=== PATIENT | male | born 1975 | race Caucasian/White ===

== ENCOUNTER 2016-12-27 13:34 | Outpatient (CLI) | payer MEDICARE, OTHER ==
[~2016-12-27] VITALS: Ht 195.6 cm; Wt 115.2 kg
[2016-12-27] MEDS ORDERED: ATORVASTATIN CA10 MG ORAL (13:52)
[2016-12-27] MEDS ORDERED: KLONOPIN1 MG ORAL (13:52)
--- NOTE | 2016-12-27 14:14 | GI Initial Consult Note ---
History of Present Illness General Date patient seen: Dec 27, 2016 Time patient seen: 14:07 Referring physician: FERN Reason for Consultation: COLONOSCOPY Present Illness HPI 41 year old male patient referred by Dr. Jacobs for colonoscopy screening given recent diverticulitis. The patient has no previous history of any colonoscopy. He presents today with no GI symptoms. Denies any weight loss or dietary changes. Home Meds Reported Medications Clonazepam* (KLONOPIN*) 1 Mg Tablet, ORAL Q6H, #15 TAB 0 Refills 12/27/16 Atorvastatin Calcium* (LIPITOR*) 10 Mg Tablet, ORAL BEDTIME, TAB 12/27/16 Med list reviewed/reconciled: Yes Allergies: Coded Allergies: No Known Allergies (Verified Allergy, Unknown, 01/04/11) Patient History History Provided By: Patient PMH Narrative diverticulitis depression HTN sleep apnea cholesterol PSHx 2014 colon resection Rt foot MMA Pertinent Family History: none Social History Narrative ETOH use 5x weekly tobacco use 20/d x 5, now occasional use drug use - Medical MJ Review of Systems All Other Systems: negative except mentioned in HPI Physical Exam T 97.9 P 48 96 RA 6'5 WT 245 Sp02 EP Interpretation: normal General Appearance: well appearing, no apparent distress, alert Head: normocephalic EENT: PERRL/EOMI, normal ENT inspection, TMs normal Neck: normal inspection, full range of motion, supple Respiratory: lungs clear, normal breath sounds, no respiratory distress Cardiovascular: normal rate Gastrointestinal: normal inspection, non tender, soft, normal bowel sounds Rectal: deferred Musculoskeletal: back normal Neurologic: normal inspection, alert, oriented x3, responsive Psychiatric: normal inspection, judgement/insight normal, memory normal Skin: normal inspection, normal color, no rash, warm/dry, palpation normal Lymphatic: normal inspection, no adenopathy GI: Plan Problems: (1) Diverticulitis (2) Depression (3) HTN (hypertension) (4) Sleep apnea (5) Elevated cholesterol (6) Colonoscopy planned Plan colonoscopy scheduled 01/01/17 - CLD & prep instructions given and acknowledged by patient. Seen with Dr. Marina. Thank you for referring this patient. Natividad Chávez N.P. Dec 27, 2016 14:14
[2016-12-27 14:18] VITALS: BP 119/77
== END 2016-12-27 14:00 | disposition home or self-care (01) ==
LOC: PAN 13:34
DX: K57.92 Diverticulitis of intestine, part unspecified, without perforation or abscess without bleeding (principal); F32.9 Major depressive disorder, single episode, unspecified; I10 Essential (primary) hypertension; G47.30 Sleep apnea, unspecified; E78.00 Pure hypercholesterolemia, unspecified; Z72.0 Tobacco use
CPT/HCPCS: 99201

== ENCOUNTER 2017-01-03 08:39 | Day surgery (SDC) | payer MEDICARE, OTHER ==
[~2017-01-03] VITALS: Ht 182.9 cm; Wt 113.4 kg
[2017-01-03] VITALS (7 sets, daily range): BP systolic 106–120; BP diastolic 49–76
[~2017-01-03 08:39] MED LIST: ATORVASTATIN CA10 MG ORAL; KLONOPIN1 MG ORAL
--- NOTE | 2017-01-03 09:24 | Anethesia Preoperative Eval ---
Anesthesia Pre-op PMH/ROS General Date of Evaluation: Jan 03, 2017 Time of Evaluation: 10:42 Anesthesiologist: Ruslan ASA Score: ASA 2 Mallampati Score Class I : Soft palate, uvula, fauces, pillars visible Class II: Soft palate, uvula, fauces visible Class III: Soft palate, base of uvula visible Class IV: Only hard plate visible Mallampati Classification: Class II Surgeon: Salas Diagnosis: Diverticulosis Surgical Procedure: Colonosopy Anesthesia History: none Family History: no anesthesia problems Allergies: Coded Allergies: No Known Allergies (Verified Allergy, Unknown, 01/04/11) Medications: see eMAR Past Medical History Cardiovascular: Reports: HTN, other - high cholosterol Pulmonary: Reports: LASHELL Gastrointestinal/Genitourinary: Denies: GERD, CRI, ESRD, other Neurologic/Psychiatric: Reports: depression/anxiety Endocrine: Denies: DM, hypothyroidism, steroids, other HEENT: Denies: cataract (L), cataract (R), glaucoma, CABAZON (L), CABAZON (R), other Hematology/Immune: Denies: anemia, DVT, bleeding disorder, other Musculoskeletal/Integumentary: Denies: OA, RA, DJD, DDD, edema, other Other: obesity Anesthesia Pre-op Phys. Exam Physician Exam Constitutional: NAD Neurologic: CN 2-12 intact Cardiovascular: RRR Respiratory: CTA Gastrointestinal: S/NT/ND Airway Exam Mallampati Score: Class II MO: full ROM: full Teeth: intact - implant intact Anesthesia Pre-op A/P Studies Pre-op Studies: EKG Risk Assessment & Plan Plan: MAC Status Change Before Surgery: No Pre-Antibiotics Given Within 1 Hr of Incision: No Merry Mercer CRNA Jan 03, 2017 09:24
--- NOTE | 2017-01-03 10:23 | Pre-Procedure Note/Attestation ---
Pre-Procedure Note/Attestation Complete Prior to Procedure Planned Procedure: not applicable Procedure Narrative: colonoscopy Indications for Procedure Pre-Operative Diagnosis: recent diverticulitis Attestation I attest that I discussed the nature of the procedure; its benefits; risks and complications; and alternatives (and the risks and benefits of such alternatives ), prior to the procedure, with the patient (or the patient's legal fundraising sale representative). I attest that, if there was a reasonable possibility of needing a blood transfusion, the patient (or the patient's legal fundraising sale representative) was given the [facility] standardized written summary, pursuant to the Wilian Shelbie Blood Safety Act ([place] Health and Safety Code # 1645, as amended). I attest that I re-evaluated the patient just prior to the surgery and that there has been no change in the patient's H&P, except as documented below: MARGARITA MILLS Jan 03, 2017 10:23
--- NOTE | 2017-01-03 10:24 | Short Stay Surgery H&P ---
History of Present Illness History of Present Illness Chief Complaint see recent consult note HPI Don Bella is a 41 year old male who was admitted on for Diberticulosis Patient History Allergies: Coded Allergies: No Known Allergies (Verified Allergy, Unknown, 01/04/11) PAST MEDICAL HISTORY: Past Surgeries: Social History: Medication History Scheduled Atorvastatin Calcium* (Lipitor*), Unknown Dose ORAL BEDTIME, (Reported) Clonazepam* (Klonopin*), 1 MG ORAL NEEDED, (Reported) Physical Exam Vital Signs Last Vital Signs Date Time Temp Pulse Resp B/P (MAP) Pulse Ox O2 Delivery O2 Flow Rate FiO2 01/03/17 09:35 97.9 48 20 106/66 95 Room Air Plan Attestation Are the patient's medical conditions optimized for surgery? MARGARITA MILLS Jan 03, 2017 10:24
--- NOTE | 2017-01-03 10:55 | 48 Hour Post Anesthesia Eval ---
Post Anesthesia Evaluation Date of Evaluation: Jan 03, 2017 Time of Evaluation: 11:56 Blood Pressure Systolic: 114 0: 70 Pulse Rate: 45 Respiratory Rate: 20 Temperature (Fahrenheit): 97.4 O2 Sat by Pulse Oximetry: 100 Airway: patent Nausea: No Vomiting: No Pain Intensity: 0 Hydration Status: adequate Mental Status/LOC: patient returned to baseline Follow-up care needed: patient intructions given Merry Mercer CRNA Jan 03, 2017 10:55
--- NOTE | 2017-01-03 10:55 | Immediate Post-Op Evaluation ---
Immediate Post-Op Evalulation Immediate Post-Op Evalulation Date of Evaluation: Jan 03, 2017 Time of Evaluation: 11:02 IV Fluids: 350 Blood Products: 0 Estimated Blood Loss: 0 Urinary Output: 0 Blood Pressure Systolic: 114 Blood Pressure Diastolic: 74 Pulse Rate: 43 Respiratory Rate: 22 O2 Sat by Pulse Oximetry: 100 Temperature (Fahrenheit): 97.2 Pain Score (1-10): 0 Nausea: No Vomiting: No Patient Status: awake, reacts, patent Hydration Status: adequate Given Within 1 Hr of Incision: Merry Oviedo CRNA Jan 03, 2017 10:55
--- NOTE | 2017-01-03 10:56 | Endoscopy Procedure Note ---
Endoscopy Procedure Note Indication for Procedure: diverticulitis Procedures Performed: colonoscopy Operative Findings/Diagnosis: diverticulosis Specimen: none Pt Tolerated Procedure Well: Yes Estimated Blood Loss: none Anesthesiologist: nilam Anesthesia: MAC Implant(s) used?: No 50 yrs or older w/o bx or poly: Yes 10yrs. F/U not recommended: Yes If not recommended, why?: Above average risk 10 yrs. F/U needed: Yes 18 years or older w/prev. colo: No MARGARITA MILLS Jan 03, 2017 10:56
[2017-01-03] MEDS ORDERED: Midazolam 2mg/2ml Inj ONE (11:00)
[2017-01-03] MEDS ORDERED: Propofol 200mg/20ml IV ONE (11:00)
--- NOTE | 2017-01-04 08:32 | Procedure Note ---
DATE OF PROCEDURE: 01/03/2017. SURGEON: Salinas Marina M.D. PROCEDURE: colonoscopy. ANESTHESIA: Per CNRA, INSTRUMENT: Olympus adult flexible upper colonoscope. INDICATION: Diverticulitis. Reason for Procedure: The procedure, risks, benefits, and possible consequences, including hemorrhage, aspiration, perforation and infection, and alternative treatments, were explained to the patient/legal guardian by Dr. Salinas Marina and the patient/legal guardian understood and accepted these risks. Procedure In Detail: After informed consent was obtained and the patient was adequately sedated, first rectal exam was performed, which was positive for internal hemorrhoids. Then, the scope was advanced from the rectum into the cecum documented by appendiceal orifice, ileocecal valve, and upper quadrant palpation. Quality of prep was good. The patient had diverticulosis in the left colon. No obvious diverticulitis at this time. No mass. No polyp. No other pathology was seen. Retroflexion of rectum showed evidence of internal hemorrhoids. SUMMARY FINDINGS: 1. Left-sided diverticulosis. 2. Internal hemorrhoids. Recommendations: At this time, there is no obvious mass causing diverticulitis. The patient to be on a diverticular diet. Follow up in the office. I want to thank, Dr. Jacobs, for this kind referral. Salinas Marina M.D. DR: EFRAIN JOB#: [id number] CC: Williams Jacobs M.D.; Fax#: [phone]
== END 2017-01-03 12:30 | disposition home or self-care (01) ==
LOC: GAS 08:39
DX: K57.30 Diverticulosis of large intestine without perforation or abscess without bleeding (principal); K64.8 Other hemorrhoids; I10 Essential (primary) hypertension; G47.33 Obstructive sleep apnea (adult) (pediatric); F32.9 Major depressive disorder, single episode, unspecified; F41.9 Anxiety disorder, unspecified
CPT/HCPCS: 45378; J2250; J2704; 94003; 94150

== ENCOUNTER 2017-01-17 12:56 | Outpatient (CLI) | payer MEDICARE, OTHER ==
--- NOTE | 2017-01-17 13:53 | GI Progress Note ---
Assessment/Plan Problems: (1) Diverticulosis ICD Codes: K57.90 - Diverticulosis of intestine, part unspecified, without perforation or abscess without bleeding SNOMED: 336302581 (2) Hemorrhoids ICD Codes: K64.9 - Unspecified hemorrhoids SNOMED: 47562318 Status: stable Status Narrative Seen with Dr. Marina. Assessment/Plan s/p colonoscopy SUMMARY FINDINGS reviewed with patient: 1. Left-sided diverticulosis. 2. Internal hemorrhoids. Recommendations: At this time, there is no obvious mass causing diverticulitis. RTC prn repeat colonoscopy x 5 years Subjective Subjective no GI symptoms Objective T 98.3 BP 104/63 P 46 95 RA Denies weight loss. General Appearance: no apparent distress, alert Cardiovascular: normal rate Respiratory/Chest: normal breath sounds, no respiratory distress Abdominal Exam: normal bowel sounds, non tender, soft Genitourinary/Rectal: normal rectal exam Extremities: normal range of motion Natividad Chávez N.P. Jan 17, 2017 13:53
[2017-01-17 14:28] VITALS: BP 104/63
== END 2017-01-17 13:30 | disposition home or self-care (01) ==
LOC: PAN 12:56
DX: K57.90 Diverticulosis of intestine, part unspecified, without perforation or abscess without bleeding (principal); K64.9 Unspecified hemorrhoids
CPT/HCPCS: 99211